=== PATIENT | female | born 1985 | race African-American/Black ===

== ENCOUNTER 2020-08-18 12:35 | Emergency (ER) | payer OTHER ==
[~2020-08-18] VITALS: Ht 157.5 cm; Wt 95.3 kg
[2020-08-18 12:35] VITALS: BP 117/80
[2020-08-18] MEDS ORDERED: ACETAMINOPHEN 325 MG TAB PO ONE (14:30)
== END 2020-08-18 14:47 | disposition home or self-care (01) ==
LOC: ER 12:35
DX: O9A.213 Injury, poisoning and certain other consequences of external causes complicating pregnancy, third trimester (principal); S90.122A Contusion of left lesser toe(s) without damage to nail, initial encounter; O99.513 Diseases of the respiratory system complicating pregnancy, third trimester; Z3A.37 37 weeks gestation of pregnancy; Z88.6 Allergy status to analgesic agent; Z88.8 Allergy status to other drugs, medicaments and biological substances; W22.8XXA Striking against or struck by other objects, initial encounter; Y93.89 Activity, other specified; Y92.89 Other specified places as the place of occurrence of the external cause; Y99.8 Other external cause status